=== PATIENT | male | born 1950 | race Caucasian/White ===

== ENCOUNTER 2017-01-13 17:55 | Inpatient (IN) | payer OTHER ==
[~2017-01-13] VITALS: Ht 172.7 cm; Wt 66.0 kg
[~2017-01-13 17:55] MED LIST: BACTRIM DS1 TAB PO; ISOSORB MONO30 MG PO; LISINOPRIL10 MG PO; METO25TAB PO; SIMVASTATIN20 MG PO
[2017-01-13] MEDS ORDERED: METO25TAB PO (18:12)
[2017-01-13] MEDS ORDERED: METOPROL TAR25 M1 PO (18:13)
[2017-01-13 19:26] LABS: PROTHROMBIN TIME 11.4 SECONDS (9.0-12.5)
[2017-01-13 19:28] LABS: ALBUMIN 3.5 g/dL (3.2-5.0); ALKALINE PHOSPHATASE 86 u/l (38-126); BILIRUBIN, TOTAL 0.8 mg/dL (0.0-1.4); BUN 12 mg/dL (8-23); BUN/CREATININE RATIO 19 (12-20 (CALC)); CALCIUM 8.5 mg/dL (8.4-10.2); CARBON DIOXIDE 23 mmol/l (22-30); CHLORIDE 83 mmol/l (95-108); CREATININE 0.7 mg/dL (0.5-1.0); GFR > 60 ML/MIN (>=60 (CALC)); GFR FOR AFR.AMER. > 60 ML/MIN (>=60 (CALC)); GLUCOSE 119 mg/dL (82-115); POTASSIUM 4.6 mmol/l (3.5-5.1); SGOT/AST 33 u/l (9-36); SGPT/ALT 38 u/l (11-66); TOTAL PROTEIN 6.8 g/dL (6.3-8.2)
[2017-01-13 19:30] LABS: ANION GAP 13 (6-22 (CALC))
[2017-01-13 19:31] LABS: HEMATOCRIT 34.1 % (37.0-47.0); HEMOGLOBIN 12.7 g/dl (12.0-16.0); IMMATURE GRANULOCYTES 0.6 % (0.0-1.0); MEAN CELL VOLUME 91.2 fL CALC (80.0-100.0); MEAN CORPUSCULAR HGB CONC 37.2 g/L CALC (32.0-36.0); NEUT# 4.55 thou/uL (2.00-7.15); RED BLOOD COUNT 3.74 mill/uL (4.20-5.60); RED CELL DISTRI WIDTH 12.7 % (11.5-15.5)
[2017-01-13 19:34] LABS: SODIUM 114 mmol/l (137-146)
[2017-01-13 22:40] LABS: BUN 11 mg/dL (8-23); BUN/CREATININE RATIO 17 (12-20 (CALC)); CALCIUM 8.3 mg/dL (8.4-10.2); CARBON DIOXIDE 24 mmol/l (22-30); CHLORIDE 88 mmol/l (95-108); CREATININE 0.6 mg/dL (0.7-1.3); GFR > 60 ML/MIN (>=60 (CALC)); GFR FOR AFR.AMER. > 60 ML/MIN (>=60 (CALC)); GLUCOSE 80 mg/dL (82-115); POTASSIUM 4.2 mmol/l (3.5-5.1)
[2017-01-13 22:41] LABS: ANION GAP 10 (6-22 (CALC))
[2017-01-13 22:44] LABS: SODIUM 118 mmol/l (137-146)
[2017-01-14] VITALS (12 sets, daily range): BP systolic 122–159; BP diastolic 56–82
[2017-01-14 06:00] LABS: ALBUMIN 3.2 g/dL (3.2-5.0); BUN 10 mg/dL (8-23); CALCIUM 8.3 mg/dL (8.4-10.2); CARBON DIOXIDE 23 mmol/l (22-30); CHLORIDE 91 mmol/l (95-108); CREATININE 0.6 mg/dL (0.7-1.3); GFR > 60 ML/MIN (>=60 (CALC)); GFR FOR AFR.AMER. > 60 ML/MIN (>=60 (CALC)); GLUCOSE 57 mg/dL (82-115); POTASSIUM 4.4 mmol/l (3.5-5.1); SODIUM 123 mmol/l (137-146)
[2017-01-14] MEDS ORDERED: ASPIRIN81 MG PO (06:59)
[2017-01-14 21:30] LABS: HEMATOCRIT 29.5 % (39.0-50.0); HEMOGLOBIN 10.7 g/dl (14.0-18.0); IMMATURE GRANULOCYTES 0.5 % (0.0-1.0); MEAN CELL VOLUME 94.2 fL CALC (80.0-100.0); MEAN CORPUSCULAR HGB 34.2 pG CALC (26.0-32.0); MEAN CORPUSCULAR HGB CONC 36.3 g/L CALC (32.0-36.0); NEUT# 4.84 thou/uL (1.82-7.42); RED BLOOD COUNT 3.13 mill/uL (4.70-6.10); RED CELL DISTRI WIDTH 13.3 % (11.5-15.5)
[2017-01-14 21:40] LABS: ANION GAP 10 (6-22 (CALC)); BUN 8 mg/dL (8-23); BUN/CREATININE RATIO 12 (12-20 (CALC)); CALCIUM 7.6 mg/dL (8.4-10.2); CARBON DIOXIDE 21 mmol/l (22-30); CHLORIDE 95 mmol/l (95-108); CREATININE 0.7 mg/dL (0.7-1.3); GFR > 60 ML/MIN (>=60 (CALC)); GFR FOR AFR.AMER. > 60 ML/MIN (>=60 (CALC)); GLUCOSE 110 mg/dL (82-115); POTASSIUM 4.3 mmol/l (3.5-5.1); SODIUM 122 mmol/l (137-146)
[2017-01-15] VITALS (9 sets, daily range): BP systolic 138–181; BP diastolic 65–80
[2017-01-15 06:34] LABS: HEMATOCRIT 29.4 % (39.0-50.0); HEMOGLOBIN 10.8 g/dl (14.0-18.0); IMMATURE GRANULOCYTES 0.3 % (0.0-1.0); MEAN CORPUSCULAR HGB 34.2 pG CALC (26.0-32.0); MEAN CORPUSCULAR HGB CONC 36.7 g/L CALC (32.0-36.0); NEUT# 6.27 thou/uL (1.82-7.42); RED BLOOD COUNT 3.16 mill/uL (4.70-6.10); RED CELL DISTRI WIDTH 13.1 % (11.5-15.5)
[2017-01-15 06:39] LABS: ANION GAP 12 (6-22 (CALC)); BUN 7 mg/dL (8-23); BUN/CREATININE RATIO 11 (12-20 (CALC)); CARBON DIOXIDE 20 mmol/l (22-30); CHLORIDE 94 mmol/l (95-108); CREATININE 0.6 mg/dL (0.7-1.3); GFR > 60 ML/MIN (>=60 (CALC)); GFR FOR AFR.AMER. > 60 ML/MIN (>=60 (CALC)); GLUCOSE 93 mg/dL (82-115); POTASSIUM 4.2 mmol/l (3.5-5.1); SODIUM 122 mmol/l (137-146)
[2017-01-16 00:35] VITALS: BP 154/72
[2017-01-16 04:30] VITALS: BP 152/77
[2017-01-16 07:32] LABS: HEMATOCRIT 24.9 % (39.0-50.0); HEMOGLOBIN 9.1 g/dl (14.0-18.0); IMMATURE GRANULOCYTES 0.8 % (0.0-1.0); MEAN CORPUSCULAR HGB 34.3 pG CALC (26.0-32.0); MEAN CORPUSCULAR HGB CONC 36.5 g/L CALC (32.0-36.0); NEUT# 6.67 thou/uL (1.82-7.42); RED BLOOD COUNT 2.65 mill/uL (4.70-6.10); RED CELL DISTRI WIDTH 13.2 % (11.5-15.5)
[2017-01-16 07:51] LABS: ANION GAP 11 (6-22 (CALC)); BUN 6 mg/dL (8-23); BUN/CREATININE RATIO 10 (12-20 (CALC)); CALCIUM 8.1 mg/dL (8.4-10.2); CARBON DIOXIDE 23 mmol/l (22-30); CHLORIDE 95 mmol/l (95-108); CREATININE 0.6 mg/dL (0.7-1.3); GFR > 60 ML/MIN (>=60 (CALC)); GFR FOR AFR.AMER. > 60 ML/MIN (>=60 (CALC)); GLUCOSE 82 mg/dL (82-115); POTASSIUM 3.9 mmol/l (3.5-5.1); SODIUM 125 mmol/l (137-146)
[2017-01-16 08:44] VITALS: BP 120/65
[2017-01-16 11:19] VITALS: BP 134/64
[2017-01-16] MEDS ORDERED: ASPIRIN EC325 MG PO (15:02)
== END 2017-01-16 16:15 | disposition home health service (06) | DRG 470 ==
LOC: ED 17:55 → ED-I 19:30 → ED 20:04 → MS2 20:05 → ICU 20:05 → MS2 20:05 → ICU 20:05 → EDSEX 20:05 → MS2 01-15 14:38
PROVIDERS: Emergency Medicine; Internal Medicine Nephrology; ADMIT Internal Medicine; ATTEND Internal Medicine
PROC: 0SRS0JZ Replacement of Left Hip Joint, Femoral Surface with Synthetic Substitute, Open Approach (ICD-10-PCS; principal; 2017-01-14)
DX: S72.011A Unspecified intracapsular fracture of right femur, initial encounter for closed fracture (principal); E87.1 Hypo-osmolality and hyponatremia; J44.9 Chronic obstructive pulmonary disease, unspecified; I25.10 Atherosclerotic heart disease of native coronary artery without angina pectoris; I10 Essential (primary) hypertension; E78.5 Hyperlipidemia, unspecified; F17.210 Nicotine dependence, cigarettes, uncomplicated; E16.2 Hypoglycemia, unspecified; F10.20 Alcohol dependence, uncomplicated; W11.XXXA Fall on and from ladder, initial encounter; Y92.009 Unspecified place in unspecified non-institutional (private) residence as the place of occurrence of the external cause; Y93.89 Activity, other specified; Z95.1 Presence of aortocoronary bypass graft
CPT/HCPCS: J2270

== ENCOUNTER 2020-07-27 07:49 | Emergency (ER) | payer OTHER ==
[~2020-07-27] VITALS: Ht 172.7 cm; Wt 50.0 kg
[~2020-07-27 07:49] MED LIST changes: +ASPIRIN EC325 MG PO; +ASPIRIN81 MG PO; +METOPROL TAR25 M1 PO
[2020-07-27 08:26] LABS: HEMOGLOBIN 10.8 g/dl (14.0-18.0); IMMATURE GRANULOCYTES 0.9 % (0.0-5.0); MEAN CELL VOLUME 93.2 fL CALC (80.0-100.0); MEAN CORPUSCULAR HGB 31.8 pG CALC (26.0-32.0); MEAN CORPUSCULAR HGB CONC 34.1 g/dL CAL (32.0-36.0); NEUT# 12.99 thou/uL (1.82-7.42); RED BLOOD COUNT 3.4 mill/uL (4.70-6.10); RED CELL DISTRI WIDTH 15.7 % (11.5-15.5)
[2020-07-27 08:28] LABS: HEMATOCRIT 31.7 % (39.0-50.0)
--- NOTE | 2020-07-27 08:41 | NUR ---
RECEIVED PT ON CPAP FROM EMS. PT PLACED ON BIPAP 14//100% ABG COMPLETED ON THESE SETTINGS. RESULTS RECORDED AND CALLED TO DR. CHAVES PT REMAINS ON BIPAP. WAITING ORDERS.
[2020-07-27 08:42] LABS: ALKALINE PHOSPHATASE 109 u/l (38-126); BILIRUBIN, TOTAL 0.7 mg/dL (0.0-1.4); BUN 17 mg/dL (8-23); BUN/CREATININE RATIO 23 (12-20 (CALC)); CHLORIDE 92 mmol/l (95-108); CREATININE 0.8 mg/dL (0.7-1.3); GFR > 60 ML/MIN (>=60 (CALC)); GFR FOR AFR.AMER. > 60 ML/MIN (>=60 (CALC)); LIPASE 86 u/l (23-300); POTASSIUM 4.4 mmol/l (3.5-5.1); SGOT/AST 37 u/l (19-48); SODIUM 123 mmol/l (137-146); TOTAL PROTEIN 7.5 g/dL (6.3-8.2)
[2020-07-27 08:54] LABS: ALBUMIN 3.9 g/dL (3.2-5.0); ANION GAP 22 (6-22 (CALC)); CARBON DIOXIDE 13 mmol/l (22-30)
[2020-07-27 08:58] LABS: ACT PARTIAL THROMBO TIME 27.4 SECONDS (20.0-32.5); INTERNATIONAL NORMALIZED RATIO 1.2 RATIO (0.7-1.3); PROTHROMBIN TIME 11.7 SECONDS (9.0-12.5)
[2020-07-27] MEDS ORDERED: NORVASC5 M1 PO (09:54)
[2020-07-27] MEDS ORDERED: LIPITOR80 M1 PO (09:54)
[2020-07-27] MEDS ORDERED: NAPROXEN250 MG PO (09:55)
[2020-07-27] MEDS ORDERED: SPIRIVA HANDIH18 MCG IN (09:56)
[2020-07-27] MEDS ORDERED: SYMBICORT 80-4.5MCG IN (09:57)
[2020-07-27 11:21] VITALS: BP 153/62
== END 2020-07-27 11:21 | disposition short-term general hospital (02) | DRG 871 ==
LOC: ED 07:49
PROC: 5A09357 Assistance with Respiratory Ventilation, Less than 24 Consecutive Hours, Continuous Positive Airway Pressure (ICD-10-PCS; principal; 2020-07-27)
DX: A41.9 Sepsis, unspecified organism (principal); J96.00 Acute respiratory failure, unspecified whether with hypoxia or hypercapnia; J18.9 Pneumonia, unspecified organism; L03.116 Cellulitis of left lower limb; E87.1 Hypo-osmolality and hyponatremia; J44.0 Chronic obstructive pulmonary disease with (acute) lower respiratory infection; R65.20 Severe sepsis without septic shock; I10 Essential (primary) hypertension; I70.249 Atherosclerosis of native arteries of left leg with ulceration of unspecified site; L97.529 Non-pressure chronic ulcer of other part of left foot with unspecified severity; F17.200 Nicotine dependence, unspecified, uncomplicated; Z20.822 Contact with and (suspected) exposure to COVID-19
CPT/HCPCS: Q9967

== ENCOUNTER 2020-08-30 05:33 | Inpatient (IN) | payer OTHER, MEDICARE ==
[2020-08-30] VITALS (13 sets, daily range): BP systolic 97–152; BP diastolic 54–84
[~2020-08-30 05:33] MED LIST changes: +LIPITOR80 M1 PO; +NAPROXEN250 MG PO; +NORVASC5 M1 PO; +SPIRIVA HANDIH18 MCG IN; +SYMBICORT 80-4.5MCG IN
--- NOTE | 2020-08-30 05:33 | NUR ---
ARRIVED VIA DCFR ON BIPAP...DYSPNEIC. COLD/CLAMMY.
[2020-08-30] MEDS ORDERED: PREDNISONE1 MG PO (06:02)
[2020-08-30] MEDS ORDERED: DILTIAZEM120 MG PO (06:05)
[2020-08-30] MEDS ORDERED: PREDNISONE10 MG PO (06:05)
[2020-08-30 06:08] LABS: HEMATOCRIT 36.9 % (39.0-50.0); HEMOGLOBIN 10.8 g/dl (14.0-18.0); MEAN CELL VOLUME 98.7 fL CALC (80.0-100.0); MEAN CORPUSCULAR HGB 28.9 pG CALC (26.0-32.0); MEAN CORPUSCULAR HGB CONC 29.3 g/dL CAL (32.0-36.0); NEUT# 12.31 thou/uL (1.82-7.42); RED BLOOD COUNT 3.74 mill/uL (4.70-6.10); RED CELL DISTRI WIDTH 16.3 % (11.5-15.5)
[2020-08-30] MEDS ORDERED: ELIQUIS5 MG PO (06:09)
[2020-08-30] MEDS ORDERED: FAMOTIDINE20 M1 PO (06:10)
[2020-08-30] MEDS ORDERED: OMNICEF300 MG PO (06:11)
[2020-08-30] MEDS ORDERED: ALBUTEROL INHALER (06:16)
[2020-08-30] MEDS ORDERED: IPRATROPIU0.5 MG/3 M IN (06:17)
[2020-08-30] MEDS ORDERED: LIDOCAINE PATCH 55 % TOP (06:20)
[2020-08-30] MEDS ORDERED: HOME O2 (06:23)
--- NOTE | 2020-08-30 06:26 | NUR ---
RESTING COMFORTABLY FEELING BETTER AT BEDSIDE
[2020-08-30 06:36] LABS: URINE BILIRUBIN - DIPSTICK NEGATIVE (NEGATIVE); URINE BLOOD DIPSTICK LARGE (NEGATIVE); URINE COLOR YELLOW; URINE GLUCOSE - DIPSTICK NEGATIVE (NEGATIVE); URINE KETONE NEGATIVE (NEGATIVE); URINE PROTEIN - DIPSTICK TRACE mg/dL (NEG-TRACE); URINE SPECIFIC GRAVITY 1.015; URINE UROBILINOGEN - DIPSTICK 0.2 E.U./dL (0.2)
[2020-08-30 06:39] LABS: ALBUMIN 3.6 g/dL (3.2-5.0); ALKALINE PHOSPHATASE 82 u/l (38-126); ANION GAP 15 (6-22 (CALC)); BILIRUBIN, TOTAL 0.8 mg/dL (0.0-1.4); BUN 17 mg/dL (8-23); BUN/CREATININE RATIO 26 (12-20 (CALC)); CHLORIDE 98 mmol/l (95-108); CREATININE 0.7 mg/dL (0.7-1.3); GFR > 60 ML/MIN (>=60 (CALC)); GFR FOR AFR.AMER. > 60 ML/MIN (>=60 (CALC)); POTASSIUM 4.7 mmol/l (3.5-5.1); SGOT/AST 57 u/l (19-48); SODIUM 129 mmol/l (137-146)
[2020-08-30 06:42] LABS: CARBON DIOXIDE 21 mmol/l (22-30)
[2020-08-30 06:44] LABS: URINE LEUK ESTERASE NEGATIVE (NEGATIVE); URINE NITRITE - DIPSTICK NEGATIVE (Negative); URINE RBC 50-100 RBC/hpf (0-5)
[2020-08-30 06:45] LABS: URINE BACTERIA FEW hpf; URINE EPITHELIAL CELLS MODERATE EPI/hpf (0-FEW); URINE MUCUS MODERATE hpf (NONE-FEW)
[2020-08-30 07:01] LABS: INTERNATIONAL NORMALIZED RATIO 1.2 RATIO (0.7-1.3); PROTHROMBIN TIME 11.9 SECONDS (9.0-12.5)
--- NOTE | 2020-08-30 07:47 | NUR ---
1,000 ML OF URINE REMOVED FROM SALAS BAG.
--- NOTE | 2020-08-30 08:29 | NUR ---
CREASING MACHINE OPERATOR PLACED PT ON 3LPM NC (OFF OF BIPAP) PER PT HOME USE. PT IN NO DISTRESS AT THIS TIME. PT STATES HE "FEELS MUCH BETTER" AND WAS LOOKING FORWARD TO BREAKFAST. SPO2 ON 3LPM NC =97. RN AWARE. CREASING MACHINE OPERATOR TO MONITOR.
--- NOTE | 2020-08-30 09:30 | NUR ---
PT BROUGHT UP TO ICU FROM ER AT 0900, PER STRETCHER, PT GOT UP AND WALKED TO BED, OXYGEN AT 3 LITRES WHICH IS WHAT HE IS ON AT HOME, SATS 92%, PT ALERT/ORIENTED X3, STATES HAS EPISODES LIKE THIS SINCE LEAVING THE REHAB AT NIGHT OF SOB. AT THIS TIME STATES FEELS FINE. LAST BM WAS THIS AM, LOOSE STOOL, DENIES ANY SOB , N/V, SINCE ARRIVAL TO ER.
--- NOTE | 2020-08-30 11:34 | NUR ---
PT RESTING AT THIS TIME, DENIES ANY COMPLAINTS AT THIS TIME
--- NOTE | 2020-08-30 12:51 | NUR ---
SENT [facility] AND [facility] FAXES TO MEDICAL RECORDS FOR PTS STAY IN THEIR HOSPITALS.
--- NOTE | 2020-08-30 13:03 | NUR ---
LAB HERE FOR BLOOD DRAW
--- NOTE | 2020-08-30 14:13 | NUR ---
PT RESTING QUIETLY ON BED, DENIES ANY COMPLAINTS AT THIS TIME, VITAL SIGNS STABLE. WAS AT BEDSIDE AND JUST LEFT. HE STATES HE IS JUST GOING TO TAKE A NAP, HE HAS NOT BEEN SLEEPING OR EATING WELL SINCE LEAVING REHAB
--- NOTE | 2020-08-30 15:08 | NUR ---
PT ASLEEP IN BED, SUPINE. NO ACUTE DISTRESS NOTED. CAMPAIGN ADVISOR TO MONITOR.
--- NOTE | 2020-08-30 16:34 | NUR ---
PT RESTING QUIETLY ON BED, WATCHING TV, NO COMPLAINTS AT THIS TIME.
--- NOTE | 2020-08-30 18:15 | NUR ---
PT RESTING QUIETLY ON BED, NO COMPLAINTS, DENIES FEELING OF SOB, BUT STATES WHEN HE GOES TO SLEEP HE USUALLY WAKES UP SOB.
--- NOTE | 2020-08-30 20:00 | NUR ---
PATIENT IS AWAKE, ORIENTED X4. ON 3 L/MIN NC, SOB WITH EXERTION NOTED. COMPLAINS OF LEFT BIG TOE PAIN AT ULCER SITE. REPORTS HE TAKES TYLENOL, WILL OBTAIN ORDER FOR TYLENOL. NURSE ASSESSMENT PERFORMED. HAS A PUMP TENDER COUGH. HAS SALAS CATHETER, YELLOW/CLEAR URINE NOTED.. IS ABLE TO SWALLOW HIS MEDICATIONS WITHIUT DIFFICULTY. R-HAND IV INTACT, FLUSHES PROPERLY, SALINE LOCKED. SR ON TELEMETRY, HR 70'S. RESP RATE 20, O2 SAT 100%. POC FOR TONIGHT DISCUSSED, PATIENT UNDERSTANDS AND AGREES. SELF REPOSITIONS. DID ALSO NOTE ULCER ON LEFT LATERAL FOOT, BILAT ULCERS ARE DRY/SCABBED, NO DRAINAGE NOTED, SEISMOMETER OPERATOR. WILL CONTINUE TO MONITOR.
--- NOTE | 2020-08-30 21:39 | NUR ---
TYLENOL AND WARM BLANKET PROVIDED.
--- NOTE | 2020-08-30 21:57 | NUR ---
RED HEELS NOTED/ BLANCHABLE. ELEVATED WITH PILLOW.
[2020-08-31] VITALS (12 sets, daily range): BP systolic 93–185; BP diastolic 51–95
--- NOTE | 2020-08-31 00:29 | NUR ---
PATIENT AWAKENS EASILY WHEN SPOKEN TO. ZOSYN INFUSING NOW. NO ACUTE DISTRESS SHOWN. NO COMPLAINTS. CALL LIGHT WITHIN REACH.
--- NOTE | 2020-08-31 04:50 | NUR ---
RT IN ROOM TO OBTAIN EKG THAT WAS ORDERED FOR THIS AM.
--- NOTE | 2020-08-31 06:11 | NUR ---
ANTIBIOTIC INFUSING NOW. PATIENT AWAKENS EASILY WHEN SPOKEN TO, NO COMPLAINTS OR NEEDS AT THIS TIME. CALL LIGHT WITHIN REACH.
--- NOTE | 2020-08-31 07:01 | NUR ---
PT SITTING UP IN BED, NO COMPLAINTS AT THIS TIME, LUNGS CLEAR, SATS 97 %, ON 2 LITRES. PT STATES SLEPT WELL THRUOUT THE NIGHT.
--- NOTE | 2020-08-31 08:27 | NUR ---
SPOKE TO PT ABOUT AFIB AND HE STATES HE FOUND OUT THAT HE HAD EPISODES OF IT IN [place]UN[place] WHEN HE WAS HERE, AND WAS STARTED ON NEW MEDS FOR IT AT [place]. PT REQUESTING A NEB TREATMENT AT THIS TIME, RESP NOTIFIED.
[2020-08-31 09:17] LABS: HEMOGLOBIN 9.1 g/dl (14.0-18.0); MEAN CORPUSCULAR HGB 28.9 pG CALC (26.0-32.0); MEAN CORPUSCULAR HGB CONC 31.4 g/dL CAL (32.0-36.0); RED BLOOD COUNT 3.15 mill/uL (4.70-6.10); RED CELL DISTRI WIDTH 16.2 % (11.5-15.5)
[2020-08-31 09:31] LABS: MEAN CELL VOLUME 92.1 fL CALC (80.0-100.0)
[2020-08-31 09:38] LABS: BUN 20 mg/dL (8-23); BUN/CREATININE RATIO 23 (12-20 (CALC)); CHLORIDE 94 mmol/l (95-108); CREATININE 0.9 mg/dL (0.7-1.3); GFR > 60 ML/MIN (>=60 (CALC)); GFR FOR AFR.AMER. > 60 ML/MIN (>=60 (CALC)); SODIUM 129 mmol/l (137-146)
[2020-08-31 09:39] LABS: ANION GAP 8 (6-22 (CALC)); CARBON DIOXIDE 30 mmol/l (22-30); POTASSIUM 3.3 mmol/l (3.5-5.1)
--- NOTE | 2020-08-31 10:00 | NUR ---
PT RESTING QUIETLY , INHALERS GIVEN PER PT REQUEST
--- NOTE | 2020-08-31 11:53 | NUR ---
PT SITTING UP IN BED WATCHING TV, VITAL SIGNS STABLE, DENIES ANY COMPLAINTS
--- NOTE | 2020-08-31 16:17 | NUR ---
PT UP IN RECLINER, NO COMPLAINTS AT THIS TIME, VITAL SIGNS REMAIN STABLE. DENIES ANY SOB, OR PAIN. REMAINS IN AFIB AT THIS TIME. PT STATES WAS DIAGNOSED WITH AFIB LAST MONTH.
--- NOTE | 2020-08-31 18:09 | NUR ---
pt remains sitting up in recliner. no complaints at this time, vital signs remain stable. afib with no ectopy.
--- NOTE | 2020-08-31 20:37 | NUR ---
PATIENT IS AWAKE, LAYS IN HIGH PALENCIA'S. ORIENTED X4, EXPRESSES GLAD HE WAS ABLE TO GET SLEEP LAST NIGHT WHICH HELPED HIM BE AWAKE TODAY TO BE ABLE TO GET UP TO RECLINER AND WAS ABLE TO WALK IN THE ROOM. IS ON 3 L/MIN NC, DOES BECOME SOB WITH EXERTION, REPORTS HE DOES BECOME SOB STILL BUT IT IS NOT BAD BEFORE. R-H IV INTACT, SOLUMEDROL GIVEN, FLUSHED. ABLE TO SWALLOW HIS MEDICATIONS WITHOUT DIFFICULTY. SELF REPOSITIONS. TYLENOL GIVEN FOR LOW PAIN IN LEGS. NURSE ASSESSMENT PERFORMED. CALL LIGHT WITHIN REACH, WATER AT BEDSIDE.
--- NOTE | 2020-08-31 22:30 | NUR ---
POTASSIUM GIVEN PER ORDER. NO ACUTE DISTRESS SHOWN. CALL LIGHT WITHIN REACH.
[2020-09-01] VITALS (8 sets, daily range): BP systolic 125–173; BP diastolic 65–77
--- NOTE | 2020-09-01 00:21 | NUR ---
ANTIBIOTIC INFUSING NOW. NO ACUTE DISTRESS SHOWN. NO NEEDS OR COMPLAINTS AT THIS TIME. CALL LIGHT WITHIN REACH.
--- NOTE | 2020-09-01 02:16 | NUR ---
PATIENT AWAKENS EASILY WHEN SPOKEN TO, NO ACUTE DISTRESS SHOWN, LEADS/ELECTRODES FIXED ON CHEST.
--- NOTE | 2020-09-01 05:08 | NUR ---
IMAGE ASSEMBLER IN ROOM TO OBTAIN BLOOD FOR AM LABS.
[2020-09-01 05:39] LABS: HEMATOCRIT 28.9 % (39.0-50.0); HEMOGLOBIN 9.1 g/dl (14.0-18.0); MEAN CELL VOLUME 91.5 fL CALC (80.0-100.0); MEAN CORPUSCULAR HGB 28.8 pG CALC (26.0-32.0); MEAN CORPUSCULAR HGB CONC 31.5 g/dL CAL (32.0-36.0); RED BLOOD COUNT 3.16 mill/uL (4.70-6.10); RED CELL DISTRI WIDTH 16.1 % (11.5-15.5)
--- NOTE | 2020-09-01 06:15 | NUR ---
ANTIBIOTIC INFUSING NOW, PATIENT REPORTS HE FEELS BETTER TODAY AND IS READY TO GO HOME TODAY, I EXPLAINED DR MCFADDEN WILL BE HERE THIS MORNING TO SEE HIM. PATIENT REQUESTS TO SIT IN RECLINER, IS ABLE TO WALK TO RECLINER WITHOUT DIFFICULTY, REQUESTS COFFEE, WILL PROVIDE. CALL LIGHT WITHIN REACH.
[2020-09-01 06:19] LABS: ANION GAP 11 (6-22 (CALC)); BUN 25 mg/dL (8-23); BUN/CREATININE RATIO 33 (12-20 (CALC)); CARBON DIOXIDE 27 mmol/l (22-30); CHLORIDE 96 mmol/l (95-108); CREATININE 0.8 mg/dL (0.7-1.3); GFR > 60 ML/MIN (>=60 (CALC)); GFR FOR AFR.AMER. > 60 ML/MIN (>=60 (CALC)); POTASSIUM 3.8 mmol/l (3.5-5.1); SODIUM 130 mmol/l (137-146)
--- NOTE | 2020-09-01 06:45 | NUR ---
REPORT RECEIVED FROM ARABELLA TOLEDO. CARE ASSUMED.
--- NOTE | 2020-09-01 07:00 | NUR ---
PT SITTING UP IN RECLINER AT BEDSIDE. PT IS ALERT AND ORIENTED X3. SHIFT ASSESSMENT COMPLETED AT THIS TIME. IV PATENT X1. CALL LIGHT IN REACH. WILL CONTINUE TO MONITOR.
--- NOTE | 2020-09-01 08:30 | NUR ---
DR MCFADDEN AT BEDSIDE AT THIS TIME.
--- NOTE | 2020-09-01 10:14 | NUR ---
WALK TEST COMPLETED WITH RT WITH PATIENT ON O2. PT O2 SATS DOES NOT DROP BELOW 90%. DR BOGDAN CLEMENTE. SALAS CATHETER REMOVED AT THIS TIME. PT TOLERATED WELL. URINAL GIVEN TO PATIENT AND INSTRUCTED TO NOTIFY STAFF WHEN HE VOIDS. PT VERBALIZED UNDERSTANDING.
[2020-09-01] MEDS ORDERED: AMOX/K CLAV875 M1 PO (11:15)
--- NOTE | 2020-09-01 11:30 | NUR ---
PT VOIDED AT THIS TIME.
--- NOTE | 2020-09-01 12:30 | NUR ---
IV site discontinued, cath intact. No edema , no redness, voices no discomfort.
--- NOTE | 2020-09-01 13:00 | NUR ---
AT BEDSIDE. DISCHARGE INSTRUCTIONS REVIEWED WITH PATIENT AND SPOUSE. BOTH VERBALIZED UNDERSTANDING.
--- NOTE | 2020-09-01 13:07 | NUR ---
Discharge instructions given. Patient verbalizes understanding of same. Discharged in stable condition via Wheelchair to Home with spouse. All belongings sent with pt.
== END 2020-09-01 13:07 | disposition home health service (06) | DRG 291 ==
LOC: ED 05:33 → ED-I 06:54 → ED 07:10 → ICU 07:11
PROVIDERS: Emergency Medicine; ADMIT Internal Medicine; ATTEND Internal Medicine
PROC: 5A09357 Assistance with Respiratory Ventilation, Less than 24 Consecutive Hours, Continuous Positive Airway Pressure (ICD-10-PCS; principal; 2020-08-30)
PROC: 0T9B70Z Drainage of Bladder with Drainage Device, Via Natural or Artificial Opening (ICD-10-PCS; 2020-08-30)
DX: I11.0 Hypertensive heart disease with heart failure (principal); J18.9 Pneumonia, unspecified organism; J96.21 Acute and chronic respiratory failure with hypoxia; E87.1 Hypo-osmolality and hyponatremia; I50.9 Heart failure, unspecified; J43.9 Emphysema, unspecified; I25.10 Atherosclerotic heart disease of native coronary artery without angina pectoris; I48.91 Unspecified atrial fibrillation; I73.9 Peripheral vascular disease, unspecified; F17.200 Nicotine dependence, unspecified, uncomplicated; Z79.01 Long term (current) use of anticoagulants; Z95.1 Presence of aortocoronary bypass graft; Z99.81 Dependence on supplemental oxygen; Z20.822 Contact with and (suspected) exposure to COVID-19

== ENCOUNTER 2020-09-03 17:26 | Inpatient (IN) | payer OTHER, MEDICARE ==
[~2020-09-03 17:26] MED LIST changes: +ALBUTEROL INHALER; +AMOX/K CLAV875 M1 PO; +DILTIAZEM120 MG PO; +ELIQUIS5 MG PO; +FAMOTIDINE20 M1 PO; +HOME O2; +IPRATROPIU0.5 MG/3 M IN; +LIDOCAINE PATCH 55 % TOP; +OMNICEF300 MG PO; +PREDNISONE1 MG PO; +PREDNISONE10 MG PO
--- NOTE | 2020-09-03 17:26 | NUR ---
PT TO ER BED 15 VIA WHEELCHAIR AT THIS TIME FOR TRIAGE.
--- NOTE | 2020-09-03 17:45 | NUR ---
SALAS INSERTED USING DTERILE TECHNIQUE THROUGHOUT. TOLERATED WELL.
[2020-09-03 18:20] LABS: HEMATOCRIT 30.6 % (39.0-50.0); HEMOGLOBIN 9.4 g/dl (14.0-18.0); IMMATURE GRANULOCYTES 0.9 % (0.0-5.0); MEAN CELL VOLUME 91.9 fL CALC (80.0-100.0); MEAN CORPUSCULAR HGB 28.2 pG CALC (26.0-32.0); MEAN CORPUSCULAR HGB CONC 30.7 g/dL CAL (32.0-36.0); NEUT# 13.33 thou/uL (1.82-7.42); RED BLOOD COUNT 3.33 mill/uL (4.70-6.10); RED CELL DISTRI WIDTH 16.3 % (11.5-15.5)
[2020-09-03 18:23] LABS: URINE BILIRUBIN - DIPSTICK NEGATIVE (NEGATIVE); URINE BLOOD DIPSTICK NEGATIVE (NEGATIVE); URINE COLOR YELLOW; URINE GLUCOSE - DIPSTICK NEGATIVE (NEGATIVE); URINE KETONE NEGATIVE (NEGATIVE); URINE LEUK ESTERASE NEGATIVE (NEGATIVE); URINE PROTEIN - DIPSTICK NEGATIVE (NEG-TRACE); URINE UROBILINOGEN - DIPSTICK 0.2 E.U./dL (0.2)
[2020-09-03 18:24] LABS: URINE NITRITE - DIPSTICK NEGATIVE (Negative)
[2020-09-03 18:34] LABS: ALBUMIN 3.3 g/dL (3.2-5.0); ALKALINE PHOSPHATASE 73 u/l (38-126); ANION GAP 7 (6-22 (CALC)); BILIRUBIN, TOTAL 0.7 mg/dL (0.0-1.4); BUN 21 mg/dL (8-23); BUN/CREATININE RATIO 33 (12-20 (CALC)); CARBON DIOXIDE 28 mmol/l (22-30); CHLORIDE 96 mmol/l (95-108); CREATININE 0.6 mg/dL (0.7-1.3); GFR > 60 ML/MIN (>=60 (CALC)); GFR FOR AFR.AMER. > 60 ML/MIN (>=60 (CALC)); LIPASE 209 u/l (23-300); MAGNESIUM 1.2 mg/dL (1.6-2.3); SGOT/AST 26 u/l (19-48); SODIUM 127 mmol/l (137-146); TOTAL PROTEIN 6.4 g/dL (6.3-8.2)
--- NOTE | 2020-09-03 18:39 | NUR ---
NOTED IV INFILTRATED. IV REMOVED AND WARM COMPRESS TO SITE.
[2020-09-03 18:42] LABS: ACT PARTIAL THROMBO TIME 23.4 SECONDS (20.0-32.5); INTERNATIONAL NORMALIZED RATIO 1.1 RATIO (0.7-1.3); PROTHROMBIN TIME 11.6 SECONDS (9.0-12.5)
--- NOTE | 2020-09-03 19:01 | NUR ---
report to MANUEL TOLEDO IN SBAR FORMAT.
--- NOTE | 2020-09-03 19:30 | NUR ---
RESTING COMFORTABLY STATES BREATHING BETTER AFTER DIURESIS.
--- NOTE | 2020-09-03 20:15 | NUR ---
TELEPHONE REPORT RECEIVED FROM Diana LOWE RN IN ED. ICU 2 PREPARED TO RECEIVE PATIENTS.
--- NOTE | 2020-09-03 20:26 | NUR ---
Admission Note Report Given to: TRE OROZCO Transported by: X Wheelchair Stretcher Transported with: X Nurse Transporter X Patent IV X O2 X Bingo Checker Location: X ICU MS2 PLACED ON 3 L/NC TOLERATING WELL
--- NOTE | 2020-09-03 20:35 | NUR ---
PT ARRIVES FROM ED VIA WITH 02 VIA LA, ACCOMPANIED BY Diana LOWE RN AND ANNABEL MECHANICAL CAD DRAFTER. AMBULATORY FROM TO BED. BIBPAP REAPPLIED BY ANNABEL VIVEROS. PT CONNECTED TO MONITOR AT THIS TIME AND ORIENTED TO UNIT AND ROOM.
[2020-09-03 20:50] VITALS: BP 136/68
--- NOTE | 2020-09-03 21:00 | NUR ---
ADMISSION AND ASSESMENT COMPLETE. PT ON BIPAP, TOLERATING WITHOUT ANY DISTRESS OR DISCOMFORT. SP02 95%. DENIES CURRENT RESPIRATORY DISTESS/SOB. PT A/O X3. DENIES GI SYMPTOMS. VSS. AFIB 70'S AND 80S ON MONITOR. TRACE PITTING EDEMA TO B/L ANKLES. SALAS PLACED IN ED TUBING SECURED, UNKINKED, UNOBSTRUCTED, BAD DRAINING TO GRAVITY. OUTPUT CLEAR PALE YELLOW. PLAN OF CARE REVIEWED, PT DENIES QUESTIONS. PT DENIES NEEDS AT THIS TIME. CALL JUÁREZ WITHIN REACH, AGREES TO CALL PRN. BED LOCKED IN LOW POSITION WITH BEDRAILS UP X2.
[2020-09-03 22:00] VITALS: BP 131/68
--- NOTE | 2020-09-03 22:55 | NUR ---
SCHEDULED MEDICATIONS ADMINISTERED, SEE E-MAR. PT'S DENTURES REMOVED AND SOAKING IN DENTURE CUP AT BEDSIDE. PT DENIES FURTHER NEEDS AT THIS TIME. CALL JUÁREZ WITHIN REACH, AGREES TO CALL PRN.
[2020-09-03 23:00] VITALS: BP 109/55
--- NOTE | 2020-09-03 23:46 | NUR ---
REPORT GIVEN TO Julienne EPPERSON. PT APPEARS TO BE SLEEPING COMFORTABLY, LAYING SEMIFOWLERS WITH EYES CLOSED AND BIBPAP SECURED. NO APPARENT DISTRESS. NON-INVASIVE HEMODYNAMICS REMAINS STABLE ON MONITOR. CALL JUÁREZ REMAINS WITHIN REACH.
[2020-09-04] VITALS (19 sets, daily range): BP systolic 85–175; BP diastolic 53–79
--- NOTE | 2020-09-04 02:05 | NUR ---
PATIENT RESTS ON HIS RIGHT SIDE. AWAKENS WITH PAINFUL STIMULI. CONTINUES TO BE ON BIPAP RATE 16, FIO2 40%. NO ACUTE DISTRESS SHOWN, NO COMPLAINTS OR NEEDS AT THIS TIME. CLEAR/DIMINISHED LUNG SOUNDS, WEAK PEDAL PULSES, TRACE EDEMA TO ANKLES. LEFT BIG TOE SCAB AND LEFT MEDIAL FOOT SCAB PRESENT. COOL/DRY SKIN. ACTIVE BS/ABDOMEN SOFT. AFIB WITH HR 60'S, IRREGULAR HEART SOUNDS. SALAS CATHETER INTACT, DRAINS TO GRAVITY, URINE PALE YELLOW/CLEAR. DEEDEE 22 G INTACT, SALINE LOCKED AT THIS TIME. BP 90S SYSTOLIC, AND AT TIMES 80'S SYSTOLIC, ASYMPTOMATIC. CALL LIGHT WITHIN REACH.
--- NOTE | 2020-09-04 05:50 | NUR ---
PATIENT RESTS WITH EYES CLOSED. ON BIPAP, NO ACUTE DISTRESS SHOWN. SALAS BAG EMPTIED, CPALE YELLOW/CLEAR URINE. WEIGHT TAKEN. NO COMPLAINTS OR NEEDS AT THIS TIME, LAYS IN PALENCIA'S POITION. SELF REPSOIRIONS.
[2020-09-04 06:06] LABS: HEMATOCRIT 30.7 % (39.0-50.0); HEMOGLOBIN 9.6 g/dl (14.0-18.0); MEAN CELL VOLUME 91.6 fL CALC (80.0-100.0); MEAN CORPUSCULAR HGB 28.7 pG CALC (26.0-32.0); MEAN CORPUSCULAR HGB CONC 31.3 g/dL CAL (32.0-36.0); NEUT# 9.21 thou/uL (1.82-7.42); RED BLOOD COUNT 3.35 mill/uL (4.70-6.10); RED CELL DISTRI WIDTH 16.3 % (11.5-15.5)
--- NOTE | 2020-09-04 06:20 | NUR ---
pt sleeping comfortably in bed, flat. nad. vss. submarine worker to monitor.
[2020-09-04 06:28] LABS: ANION GAP 11 (6-22 (CALC)); BUN 18 mg/dL (8-23); BUN/CREATININE RATIO 26 (12-20 (CALC)); CARBON DIOXIDE 30 mmol/l (22-30); CHLORIDE 95 mmol/l (95-108); CREATININE 0.7 mg/dL (0.7-1.3); GFR > 60 ML/MIN (>=60 (CALC)); GFR FOR AFR.AMER. > 60 ML/MIN (>=60 (CALC)); POTASSIUM 3.5 mmol/l (3.5-5.1); SODIUM 132 mmol/l (137-146)
[2020-09-04 06:31] LABS: MAGNESIUM 1.9 mg/dL (1.6-2.3)
--- NOTE | 2020-09-04 06:31 | NUR ---
PLACED APOT ON NASAL CANNULA AZS PER HOME REGIMENT. BANK CLERK TO MONITOR.
--- NOTE | 2020-09-04 06:45 | NUR ---
REPORT RECEIVED FROM ARABELLA TOLEDO. CARE ASSUMED.
--- NOTE | 2020-09-04 07:15 | NUR ---
PT RESTING IN BED AWAKE AND ON O2 4L NC. PT IS ALERT AND ORIENTED X3. SHIFT ASSESSMENT COMPLETED AT THIS TIME. IV PATENT X1. CALL LIGHT IN REACH. WILL CONTINUE TO MONITOR.
--- NOTE | 2020-09-04 09:01 | NUR ---
DR DHILLON AT BEDSIDE AT THIS TIME.
--- NOTE | 2020-09-04 10:30 | NUR ---
PT ASSISTED UP TO RECLINER AT THIS TIME. PT TOLERATED TRANSFER WELL. CALL LIGHT IN REACH. WILL CONTINUE TO MONITOR.
--- NOTE | 2020-09-04 12:00 | NUR ---
PT RESTING IN RECLINER AT BEDSIDE EATING NOON MEAL. RESP ARE EVEN AND UNLABORED. NO DISTRESS NOTED. CALL LIGHT IN REACH. WILL CONTINUE TO MONITOR.
--- NOTE | 2020-09-04 13:36 | NUR ---
SPOUSE IN ROOM. PT AMBULATING WITH WALKER IN ROOM WITH O2 TUBING. PT AMBULATED TO BATHROOM HAD LARGE BOWEL MOVEMENT. PT BACK TO RECLINER.
--- NOTE | 2020-09-04 15:32 | NUR ---
PT SITTING UP IN RECLINER AT BEDSIDE. RESP ARE EVEN AND UNLABORED.NO DISTRESS NOTED. CALL LIGHT IN REACH. WILL CONTINUE TO MONITOR.
--- NOTE | 2020-09-04 18:00 | NUR ---
PT SITTING UP IN RECLINER EATING DINNER. RESP ARE EVEN AND UNLABORED. NO DISTRESS NOTED. CALL LIGHT IN REACH. WILL CONTINUE TO MONITOR.
--- NOTE | 2020-09-04 19:00 | NUR ---
REPORT GIVEN BY LISA. PATIENT IN THE BEDSIDE RECLINER. RESP EVEN AND UNLABORED, 3L NC IN PLACE. FALL AND SAFTEY PRECAUTIONS IN PLACE. IV SALINE LOCKED. PLAN OF CARE DISCUSSED. PATIENT INFORMED TO CALL WITH ANY QUESTIONS OR CONCERNS. SALAS DRAINING PALE YELLOW URINE TO GRAVITY.
--- NOTE | 2020-09-04 20:30 | NUR ---
PM MEDICATIONS GIVEN PER MD ORDERS. PATIENT TRANSFERED FROM RECLINER TO BED, NO S/S OF DISTRESS NOTED. AQUACELL PLACED ON PATIENT'S BOTTOM. FALL AND SAFTEY PRECAUTIONS IN PLACE.
[2020-09-05] VITALS (8 sets, daily range): BP systolic 90–145; BP diastolic 55–91
--- NOTE | 2020-09-05 01:02 | NUR ---
PATIENT RESTING WITH EYES CLOSED. RESP EVEN AND UNLABORED. NO S/S OF DISTRESS NOTED. FALL AND SAFTEYP PRECAUTIONS IN PLACE.
--- NOTE | 2020-09-05 02:00 | NUR ---
PATIENT RESTING WITH EYES CLOSED. RESP EVEN AND UNLABORED. NO S/S OF DISTRESS NOTED
--- NOTE | 2020-09-05 05:21 | NUR ---
LAW DA SILVA IN ROOM DRAWING MORNING LABS
[2020-09-05 05:34] LABS: HEMATOCRIT 29.7 % (39.0-50.0); HEMOGLOBIN 9.1 g/dl (14.0-18.0); IMMATURE GRANULOCYTES 1.2 % (0.0-5.0); MEAN CORPUSCULAR HGB 28.2 pG CALC (26.0-32.0); MEAN CORPUSCULAR HGB CONC 30.6 g/dL CAL (32.0-36.0); NEUT# 7.57 thou/uL (1.82-7.42); RED BLOOD COUNT 3.23 mill/uL (4.70-6.10); RED CELL DISTRI WIDTH 16.5 % (11.5-15.5)
[2020-09-05 05:52] LABS: ALBUMIN 2.8 g/dL (3.2-5.0); ALKALINE PHOSPHATASE 67 u/l (38-126); ANION GAP 8 (6-22 (CALC)); BILIRUBIN, TOTAL 0.6 mg/dL (0.0-1.4); BUN 22 mg/dL (8-23); BUN/CREATININE RATIO 31 (12-20 (CALC)); CARBON DIOXIDE 32 mmol/l (22-30); CHLORIDE 95 mmol/l (95-108); CREATININE 0.7 mg/dL (0.7-1.3); GFR > 60 ML/MIN (>=60 (CALC)); GFR FOR AFR.AMER. > 60 ML/MIN (>=60 (CALC)); MAGNESIUM 1.6 mg/dL (1.6-2.3); POTASSIUM 3.6 mmol/l (3.5-5.1); SGOT/AST 21 u/l (19-48); SODIUM 131 mmol/l (137-146); TOTAL PROTEIN 5.6 g/dL (6.3-8.2)
--- NOTE | 2020-09-05 05:59 | NUR ---
PATIENT RESTING IN BED WITH EYES CLOSED. RESP EVEN AND UNLABORED. NO S/S OF DISTRESS NOTED
--- NOTE | 2020-09-05 07:10 | NUR ---
pt awake in bed; no apparent distress noted; pt offers no complaints; assessment completed at this time; pt alert and oriented; denies pain; no n/v noted; resp even and unlabored; lungs clear/ diminished bases; skin color wnl; o2 per nc at 3L; hr irreg; wk pulses; no edema noted; afib on monitor; abd soft with bs present; no bm noted per technical publications writer; oneil to gravity draining clear yellow urine; cath strap intact; #22 saline locked to anthony; no redness or edema noted at site; dressing intact to coccyx/ unable to assess wound at this time; repositioning encouraged to assist with wound healing; plan of care/ am meds explained; call light within reach; will continue to monitor
--- NOTE | 2020-09-05 07:22 | NUR ---
PT MARITO AEROSOLIZED BRONCHODILATOR THERAPY WELL. NAD. VSS. DIVISION OFFICER [employer]APONS DEPARTMENT TO [facility].
--- NOTE | 2020-09-05 08:00 | NUR ---
awake in bed; offers no complaints; iv intact; afib on monitor; call light within reach; will continue to monitor
--- NOTE | 2020-09-05 08:40 | NUR ---
Dr Mustafa present at bedside to assess pt and discuss plan of care
[2020-09-05] MEDS ORDERED: LASIX 20 MG TAB20 MG PO (09:45)
[2020-09-05] MEDS ORDERED: K-TABS10 MEQ PO (09:46)
[2020-09-05] MEDS ORDERED: FERROUS SULF325 M3 PO (09:47)
--- NOTE | 2020-09-05 10:10 | NUR ---
awake in bed; afib on monitor; staff at bedside for removal of oneil catheter; iv intact; call light within reach; will continue to monitor
--- NOTE | 2020-09-05 10:13 | NUR ---
SALAS CATHATER REMOVED. PT TOLERATED WELL. EDUCATED ON NEED OF VOIDING AFTER REMOVAL. PT VERBALIZED UNDERSTANDING.URINAL PROVIDED.
--- NOTE | 2020-09-05 11:31 | NUR ---
voiding without complication post oneil catheter removal
--- NOTE | 2020-09-05 12:10 | NUR ---
pt awake in bed; offers no complaints; iv intact and patent; afib on monitor; call light within reach; will continue to monitor
--- NOTE | 2020-09-05 12:43 | NUR ---
pt ambulating with walker within nursing unit; B ALEXANDER Gimenez with pt; o2 sat and hr being monitored; pt denies any sob/ resp distress; hr after activity 79 and o2 sat 100% while on 3L NC; will continue to monitor
--- NOTE | 2020-09-05 13:57 | NUR ---
spouse present at bedside; discharge instructions reviewed in great detail; #22 removed from anthony with catheter tip intact;
--- NOTE | 2020-09-05 14:07 | NUR ---
Discharge instructions given. Patient verbalizes understanding of same. Discharged in stable condition via Wheelchair to Home with spouse. All belongings sent with pt.
== END 2020-09-05 14:07 | disposition home health service (06) | DRG 291 ==
LOC: ED 17:26 → ED-I 18:50 → ED 19:03 → ICU 19:04
PROVIDERS: ADMIT Internal Medicine; ATTEND Internal Medicine
PROC: 5A09357 Assistance with Respiratory Ventilation, Less than 24 Consecutive Hours, Continuous Positive Airway Pressure (ICD-10-PCS; principal; 2020-09-03)
PROC: 0T9B70Z Drainage of Bladder with Drainage Device, Via Natural or Artificial Opening (ICD-10-PCS; 2020-09-03)
DX: I11.0 Hypertensive heart disease with heart failure (principal); J96.21 Acute and chronic respiratory failure with hypoxia; J18.9 Pneumonia, unspecified organism; E87.1 Hypo-osmolality and hyponatremia; I50.9 Heart failure, unspecified; J43.9 Emphysema, unspecified; I48.91 Unspecified atrial fibrillation; I25.10 Atherosclerotic heart disease of native coronary artery without angina pectoris; R33.9 Retention of urine, unspecified; Z95.1 Presence of aortocoronary bypass graft; Z99.81 Dependence on supplemental oxygen; Z20.822 Contact with and (suspected) exposure to COVID-19
CPT/HCPCS: J1756; J3475

== ENCOUNTER 2020-11-12 13:04 | Emergency (ER) | payer OTHER, MEDICARE ==
[~2020-11-12] VITALS: Ht 172.7 cm; Wt 52.0 kg
[~2020-11-12 13:04] MED LIST changes: +FERROUS SULF325 M3 PO; +K-TABS10 MEQ PO; +LASIX 20 MG TAB20 MG PO
[2020-11-12 14:41] LABS: HEMATOCRIT 35.3 % (39.0-50.0); IMMATURE GRANULOCYTES 0.4 % (0.0-5.0); MEAN CORPUSCULAR HGB 26.7 pG CALC (26.0-32.0); MEAN CORPUSCULAR HGB CONC 31.4 g/dL CAL (32.0-36.0); NEUT# 7.49 thou/uL (1.82-7.42); RED BLOOD COUNT 4.16 mill/uL (4.70-6.10); RED CELL DISTRI WIDTH 18.5 % (11.5-15.5)
[2020-11-12 14:45] LABS: HEMOGLOBIN 11.1 g/dl (14.0-18.0); MEAN CELL VOLUME 84.9 fL CALC (80.0-100.0)
[2020-11-12 14:59] LABS: ALKALINE PHOSPHATASE 72 u/l (38-126); BUN 17 mg/dL (8-23); BUN/CREATININE RATIO 24 (12-20 (CALC)); CARBON DIOXIDE 29 mmol/l (22-30); CHLORIDE 93 mmol/l (95-108); CREATININE 0.7 mg/dL (0.7-1.3); GFR > 60 ML/MIN (>=60 (CALC)); GFR FOR AFR.AMER. > 60 ML/MIN (>=60 (CALC)); SGOT/AST 29 u/l (19-48); SODIUM 131 mmol/l (137-146)
[2020-11-12 15:03] LABS: ANION GAP 14 (6-22 (CALC)); BILIRUBIN, TOTAL 0.3 mg/dL (0.0-1.4); POTASSIUM 4.7 mmol/l (3.5-5.1); TOTAL PROTEIN 7.7 g/dL (6.3-8.2)
[2020-11-12 16:15] VITALS: BP 139/72
== END 2020-11-12 16:20 | disposition home or self-care (01) | DRG 293 ==
LOC: ED 13:04
PROVIDERS: Family Medicine
DX: I11.0 Hypertensive heart disease with heart failure (principal); I50.9 Heart failure, unspecified; J44.9 Chronic obstructive pulmonary disease, unspecified; I25.10 Atherosclerotic heart disease of native coronary artery without angina pectoris; I48.91 Unspecified atrial fibrillation; Z95.1 Presence of aortocoronary bypass graft; Z20.822 Contact with and (suspected) exposure to COVID-19

== ENCOUNTER 2021-07-03 13:43 | Emergency (ER) | payer OTHER ==
[2021-07-03] VITALS (16 sets, daily range): BP systolic 103–145; BP diastolic 56–88
[~2021-07-03] VITALS: Ht 172.7 cm; Wt 53.6 kg
[2021-07-03 14:21] LABS: HEMATOCRIT 40.5 % (39.0-50.0); IMMATURE GRANULOCYTES 0.4 % (0.0-5.0); MEAN CORPUSCULAR HGB 30.5 pG CALC (26.0-32.0); MEAN CORPUSCULAR HGB CONC 32.6 g/dL CAL (32.0-36.0); NEUT# 5.73 thou/uL (1.82-7.42); RED BLOOD COUNT 4.33 mill/uL (4.70-6.10); RED CELL DISTRI WIDTH 19.3 % (11.5-15.5)
[2021-07-03 14:22] LABS: HEMOGLOBIN 13.2 g/dl (14.0-18.0); MEAN CELL VOLUME 93.5 fL CALC (80.0-100.0)
[2021-07-03 15:08] LABS: ALKALINE PHOSPHATASE 98 u/l (38-126); BUN 17 mg/dL (8-23); BUN/CREATININE RATIO 18 (12-20 (CALC)); CARBON DIOXIDE 24 mmol/l (22-30); CHLORIDE 98 mmol/l (95-108); CREATININE 0.9 mg/dL (0.7-1.3); GFR > 60 ML/MIN (>=60 (CALC)); GFR FOR AFR.AMER. > 60 ML/MIN (>=60 (CALC)); SGOT/AST 34 u/l (19-48); SODIUM 131 mmol/l (137-146); TOTAL PROTEIN 7.5 g/dL (6.3-8.2)
[2021-07-03 15:09] LABS: ANION GAP 14 (6-22 (CALC)); POTASSIUM 5.3 mmol/l (3.5-5.1)
[2021-07-03 15:10] LABS: BILIRUBIN, TOTAL 0.8 mg/dL (0.0-1.4)
[2021-07-03] MEDS ORDERED: CENTRUM SILVER PO (16:10)
[2021-07-03] MEDS ORDERED: GABAPENTIN600 MG PO (16:16)
[2021-07-03] MEDS ORDERED: PROAIR HFA IN (16:17)
== END 2021-07-03 17:22 | disposition short-term general hospital (02) | DRG 194 ==
LOC: ED 13:43
PROVIDERS: Family Medicine
DX: J18.9 Pneumonia, unspecified organism (principal); J44.0 Chronic obstructive pulmonary disease with (acute) lower respiratory infection; J44.1 Chronic obstructive pulmonary disease with (acute) exacerbation; R94.31 Abnormal electrocardiogram [ECG] [EKG]; I11.0 Hypertensive heart disease with heart failure; I50.9 Heart failure, unspecified; I25.10 Atherosclerotic heart disease of native coronary artery without angina pectoris; I48.91 Unspecified atrial fibrillation; Z95.1 Presence of aortocoronary bypass graft; Z99.81 Dependence on supplemental oxygen; Z20.822 Contact with and (suspected) exposure to COVID-19